=== PATIENT | male | born 1990 ===

== ENCOUNTER 2017-02-24 09:48 | Day surgery (SDC) | payer OTHER ==
[2017-02-24 10:29] VITALS: BMI 25.0
[2017-02-24] MEDS ORDERED: Lidocaine Hydrochloride 5 ML INJ ONE (13:16)
[2017-02-24] MEDS ORDERED: Propofol 10 mg/ml Inj (20 ML) ONE (13:16)
[2017-02-24 14:02] VITALS: TEMP 98.4
[2017-02-24 14:36] VITALS: BP 115/67; PULSE 75; RESP 18; O2SAT 98
== END 2017-02-24 14:32 | disposition home or self-care (01) ==
LOC: C.ENDO 09:48
PROVIDERS: ATTEND Internal Medicine Gastroenterology
DX: K29.50 Unspecified chronic gastritis without bleeding (principal); R19.4 Change in bowel habit
CPT/HCPCS: 43239; 88305; 88313; 88342; J2704